=== PATIENT | female | born 1960 | race Caucasian/White ===

== ENCOUNTER 2019-01-21 22:17 | Emergency (ER) | payer BC ==
[2016-06-27 20:53] VITALS: BP 130/68
[~2019-01-21] VITALS: Ht 162.6 cm; Wt 77.1 kg
[~2019-01-21 22:17] MED LIST: ASPI325T8 PO; ATORVASTATIN CA80 MG PO; CITA40TA5 PO; CYCL10TA2 PO; METH4TAB2 PO; METO25TA2 PO; MULT1TAB52 PO; NAPR500T8 PO
[2019-01-22] MEDS ORDERED: PRED20TA PO (00:19)
--- NOTE | 2019-01-22 00:19 | PHYS DOC ---
Past Medical History Past Medical History: No Pertinent History, Depression Past Surgical History: No Surgical History, Other Additional Past Surgical Histo: DOUBLE BYPASS Alcohol Use: None Drug Use: None Adult General Chief Complaint Chief Complaint: SKIN RASH/ABSCESS HPI HPI Patient is a 58 year old [f__sex] who presents with [] Review of Systems Review of Systems Constitutional: Denies fever or chills [] Eyes: Denies change in visual acuity, redness, or eye pain [] HENT: Denies nasal congestion or sore throat [] Respiratory: Denies cough or shortness of breath [] Cardiovascular: No additional information not addressed in HPI [] GI: Denies abdominal pain, nausea, vomiting, bloody stools or diarrhea [] : Denies dysuria or hematuria [] Musculoskeletal: Denies back pain or joint pain [] Integument: Denies rash or skin lesions [] Neurologic: Denies headache, focal weakness or sensory changes [] Endocrine: Denies polyuria or polydipsia [] All other systems were reviewed and found to be within normal limits, except as documented in this note. Allergies Allergies Allergies Coded Allergies Type Severity Reaction Last Updated Verified No Known Drug Allergies 08/04/14 No Physical Exam Physical Exam Constitutional: Well developed, well nourished, no acute distress, non-toxic appearance. [] HENT: Normocephalic, atraumatic, bilateral external ears normal, oropharynx moist, no oral exudates, nose normal. [] Eyes: PERRLA, EOMI, conjunctiva normal, no discharge. [] Neck: Normal range of motion, no tenderness, supple, no stridor. [] Cardiovascular:Heart rate regular rhythm, no murmur [] Lungs & Thorax: Bilateral breath sounds clear to auscultation [] Abdomen: Bowel sounds normal, soft, no tenderness, no masses, no pulsatile masses. [] Skin: Warm, dry, no erythema, no rash. [] Back: No tenderness, no CVA tenderness. [] Extremities: No tenderness, no cyanosis, no clubbing, ROM intact, no edema. [] Neurologic: Alert and oriented X 3, normal motor function, normal sensory function, no focal deficits noted. [] Psychologic: Affect normal, judgement normal, mood normal. [] Current Patient Data Vital Signs Vital Signs Date Time Temp Pulse Resp B/P (MAP) Pulse Ox O2 Delivery O2 Flow Rate FiO2 01/21/19 22:25 97.5 90 18 158/73 (101) 99 Room Air 97.5 EKG EKG [] Radiology/Procedures Radiology/Procedures [] Course & Med Decision Making Course & Med Decision Making Pertinent Labs and Imaging studies reviewed. (See chart for details) [] Dragon Disclaimer Dragon Disclaimer This electronic medical record was generated, in whole or in part, using a voice recognition dictation system. Departure Departure Impression: Primary Impression: Dermatitis Disposition: HOME, SELF-CARE Condition: STABLE Referrals: KASANDRA WELLS MD (PCP) Patient Instructions: Contact Dermatitis, [id number] Additional Instructions: Refrain from overusing your facial creams and over the counter vitamin oils. Use Aquphor to areas of dryness. Scripts Prednisone (PREDNISONE) 20 Mg Tablet 2 TAB PO DAILY, #8 TAB Prov: STACI CARIAS DO 01/22/19 STACI CARIAS DO Jan 22, 2019 00:19
[2019-01-22] MEDS ORDERED: DEXAMETHASONE 4 MG TABLET PO ONE (00:30)
== END 2019-01-22 00:39 | disposition home or self-care (01) ==
LOC: ER 22:17
DX: L30.9 Dermatitis, unspecified (principal)
CPT/HCPCS: 99283; J8540

== ENCOUNTER 2019-05-18 19:55 | Emergency (ER) | payer BC ==
[~2019-05-18] VITALS: Ht 162.6 cm; Wt 83.9 kg
[~2019-05-18 19:55] MED LIST changes: +PRED20TA PO
[2019-05-18 19:59] VITALS: BP 144/63
[2019-05-18 20:47] LABS: BILIRUBIN,URINE NEGATIVE (NEG); CLARITY,URINE CLEAR; COLOR,URINE YELLOW; NITRITE,URINE NEGATIVE (NEG); PH,URINE 5.5; PROTEIN,URINE NEGATIVE (NEG-TRACE); UROBILINOGEN,URINE 0.2 mg/dL (0.2 mg/dL)
[2019-05-18 20:47] LABS: BASO # 0.1 x10^3/uL (0.0-0.2); BASO % 1 % (0-3); EOS % 0 % (0-3); HEMATOCRIT 40.9 % (36.0-47.0); HEMOGLOBIN 13.7 g/dL (12.0-15.5); LYMPH # 2.5 x10^3/uL (1.0-4.8); LYMPH % 26 % (24-48); MEAN CORPUSCULAR HEMOGLOBIN 31 pg (25-35); MEAN CORPUSCULAR HGB CONC 33 g/dL (31-37); MEAN CORPUSCULAR VOLUME 92 fL (79-100); MONO # 0.6 x10^3/uL (0.0-1.1); MONO % 6 % (0-9); NEUT # 6.4 x10^3/uL (1.8-7.7); NEUT % 66 % (31-73); PLATELET COUNT 255 x10^3/uL (140-400); RED BLOOD COUNT 4.46 x10^6/uL (3.50-5.40); RED CELL DISTRIBUTION WIDTH 13.9 % (11.5-14.5); WHITE BLOOD COUNT 9.6 x10^3/uL (4.0-11.0)
[2019-05-18 20:52] LABS: BARBITURATES NEG (NEG); BENZODIAZEPINES NEG (NEG); CANNABINOIDS NEG (NEG); COCAINE NEG (NEG); METHADONE NEG (NEG); OPIATES POS (NEG); PHENCYCLIDINE NEG (NEG)
[2019-05-18 20:53] LABS: AMPHETAMINE/METHAMPHETAMINE POS (NEG); RBC,URINE 0 /HPF (0-2)
[2019-05-18 20:53] LABS: PROTHROMBIN TIME PATIENT 11.6 SEC (11.7-14.0)
[2019-05-18 20:54] LABS: BACTERIA,URINE MODERATE /HPF (0-FEW); SQUAMOUS EPITHELIAL CELL,UR MANY /LPF
[2019-05-18 20:56] LABS: CALCIUM 9.4 mg/dL (8.5-10.1); CREATININE 0.8 mg/dL (0.6-1.0); GFR 73.2; POTASSIUM 3.5 mmol/L (3.5-5.1)
[2019-05-18 21:01] LABS: ALBUMIN 3.7 g/dL (3.4-5.0); TOTAL BILIRUBIN 0.5 mg/dL (0.2-1.0); TOTAL PROTEIN 7.5 g/dL (6.4-8.2)
--- NOTE | 2019-05-18 21:07 | RAD ---
Exam performed: CT scan of the head without contrast. Date of Service: 05/10/2019. Comparison: None available. Clinical History: Dizziness. Technique: Helical acquisitions are obtained from the foramen magnum to the vertex without intravenous administration of contrast. Findings: The ventricles are midline without evidence of dilatation. Normal mosley-white differentiation is maintained. There is no extra axial fluid collection, intraparenchymal hemorrhage or mass lesion. The visualized portions of the orbits, paranasal sinuses and the mastoid air cells appear clear. The calvarium is intact. Impression: 1. No acute intracranial process detected. PQRS Compliance Statement: One or more of the following individualized dose reduction techniques were utilized for this examination: 1. Automated exposure control 2. Adjustment of the mA and/or kV according to patient size 3. Use of iterative reconstruction technique End impression 2 views chest findings: Heart size and mediastinal silhouette is within limits of normal. Pulmonary vascularity is unremarkable. No focal infiltrates, effusion or pneumothorax seen. Bones are normal. IMPRESSION: No acute cardiopulmonary process seen. Electronically signed by: Jennifer Matute MD (05/18/2019 9:04 PM) [facility]
--- NOTE | 2019-05-18 21:14 | PHYS DOC ---
Past Medical History Past Medical History: Anxiety, CAD, Depression (JOSI JASON APRN) Past Surgical History: Cholecystectomy, Other Additional Past Surgical Histo: DOUBLE BYPASS 2006 (JOSI JASON APRN) Alcohol Use: None Drug Use: None (JOSI JASON APRN) Adult General Chief Complaint Chief Complaint: ALLERGIC REACTION HPI HPI Patient is a 58 year old female who presents with at [facility] today when she began feeling dizzy, chest tightness, throat tightness and began getting red all over. Patient also has several wounds on her skin from where she states that she itches all over. Patient states she has a very stressful family circumstances at this time is been going on for last 3 weeks. Patient states today was the first time that she had the dizziness, chest tightness and throat tightness and began getting red all over her body. Patient currently states that she has slight chest tightness at a 4 out of 10. (JOSI JASON APRN) Review of Systems Review of Systems Constitutional: Denies fever or chills [] Eyes: Denies change in visual acuity, redness, or eye pain [] HENT: Denies nasal congestion or sore throat [] Respiratory: Denies cough or shortness of breath [] Cardiovascular: Chest tightness GI: Denies abdominal pain, nausea, vomiting, bloody stools or diarrhea [] : Denies dysuria or hematuria [] Musculoskeletal: Denies back pain or joint pain [] Integument: Flushing. Denies rash or skin lesions [] Neurologic: Dizziness. Denies headache, focal weakness or sensory changes [] Endocrine: Denies polyuria or polydipsia [] All other systems were reviewed and found to be within normal limits, except as documented in this note. (JOSI JASON APRN) Current Medications Current Medications Current Medications Medications (Trade) Dose Ordered Sig/Cristopher Start Time Stop Time Status Last Admin Dose Admin Lorazepam (Ativan Inj) 0.5 mg 1X ONCE 05/18/19 22:15 05/18/19 22:16 DC 05/18/19 22:41 0.5 MG Sodium Chloride 1,000 ml @ 1,000 mls/hr 1X ONCE 05/18/19 22:00 05/18/19 22:59 DC 05/18/19 22:41 1,000 MLS/HR (STACI CARIAS DO) Allergies Allergies Allergies Coded Allergies Type Severity Reaction Last Updated Verified No Known Drug Allergies 08/04/14 No (STACI CARIAS DO) Physical Exam Physical Exam Constitutional: Well developed, well nourished, no acute distress, non-toxic appearance. [] HENT: Normocephalic, atraumatic, bilateral external ears normal, oropharynx moist, no oral exudates, nose normal. [] Eyes: PERRLA, EOMI, conjunctiva normal, no discharge. [] Neck: Normal range of motion, no tenderness, supple, no stridor. [] Cardiovascular:Heart rate regular rhythm, no murmur [] Lungs & Thorax: Bilateral breath sounds clear to auscultation [] Abdomen: Bowel sounds normal, soft, no tenderness, no masses, no pulsatile masses. [] Skin: Flushing generalized. Warm, dry, no erythema, no rash. [] Back: No tenderness, no CVA tenderness. [] Extremities: No tenderness, no cyanosis, no clubbing, ROM intact, no edema. [] Neurologic: Alert and oriented X 3, normal motor function, normal sensory function, no focal deficits noted. [] Psychologic: Affect normal, judgement normal, mood normal. [] (JOSI JASON APRN) Current Patient Data Vital Signs Vital Signs Date Time Temp Pulse Resp B/P (MAP) Pulse Ox O2 Delivery O2 Flow Rate FiO2 05/18/19 23:45 88 18 98 Room Air 05/18/19 19:59 97.7 144/63 (90) 97.7 (STACI CARIAS DO) Lab Values Laboratory Tests Test 05/18/19 20:16 05/18/19 20:30 05/18/19 22:50 Urine Collection Type Unknown Urine Color Yellow Urine Clarity Clear Urine pH 5.5 Urine Specific [place] 1.015 Urine Protein Negative mg/dL (NEG-TRACE) Urine Glucose (UA) Negative mg/dL (NEG) Urine Ketones (Stick) Negative mg/dL (NEG) Urine Blood Negative (NEG) Urine Nitrite Negative (NEG) Urine Bilirubin Negative (NEG) Urine Urobilinogen Dipstick 0.2 mg/dL (0.2 mg/dL) Urine Leukocyte Esterase Large (NEG) Urine RBC 0 /HPF (0-2) Urine WBC 5-10 /HPF (0-4) Urine Squamous Epithelial Cells Many /LPF Urine Bacteria Moderate /HPF (0-FEW) Urine Mucus Mod /LPF Urine Opiates Screen Pos (NEG) Urine Methadone Screen Neg (NEG) Urine Barbiturates Neg (NEG) Urine Phencyclidine Screen Neg (NEG) Urine Amphetamine/Methamphetamine Pos (NEG) Urine Benzodiazepines Screen Neg (NEG) Urine Cocaine Screen Neg (NEG) Urine Cannabinoids Screen Neg (NEG) Urine Ethyl Alcohol Neg (NEG) White Blood Count 9.6 x10^3/uL (4.0-11.0) Red Blood Count 4.46 x10^6/uL (3.50-5.40) Hemoglobin 13.7 g/dL (12.0-15.5) Hematocrit 40.9 % (36.0-47.0) Mean Corpuscular Volume 92 fL (79-100) Mean Corpuscular Hemoglobin 31 pg (25-35) Mean Corpuscular Hemoglobin Concent 33 g/dL (31-37) Red Cell Distribution Width 13.9 % (11.5-14.5) Platelet Count 255 x10^3/uL (140-400) Neutrophils (%) (Auto) 66 % (31-73) Lymphocytes (%) (Auto) 26 % (24-48) Monocytes (%) (Auto) 6 % (0-9) Eosinophils (%) (Auto) 0 % (0-3) Basophils (%) (Auto) 1 % (0-3) Neutrophils # (Auto) 6.4 x10^3/uL (1.8-7.7) Lymphocytes # (Auto) 2.5 x10^3/uL (1.0-4.8) Monocytes # (Auto) 0.6 x10^3/uL (0.0-1.1) Eosinophils # (Auto) 0.0 x10^3/uL (0.0-0.7) Basophils # (Auto) 0.1 x10^3/uL (0.0-0.2) Prothrombin Time 11.6 SEC (11.7-14.0) L Prothrombin Time INR 0.9 (0.8-1.1) Sodium Level 138 mmol/L (136-145) Potassium Level 3.5 mmol/L (3.5-5.1) Chloride Level 102 mmol/L (98-107) Carbon Dioxide Level 26 mmol/L (21-32) Anion Gap 10 (6-14) Blood Urea Nitrogen 22 mg/dL (7-20) H Creatinine 0.8 mg/dL (0.6-1.0) Estimated GFR (Cockcroft-Gault) 73.2 BUN/Creatinine Ratio 28 (6-20) H Glucose Level 104 mg/dL (70-99) H Calcium Level 9.4 mg/dL (8.5-10.1) Total Bilirubin 0.5 mg/dL (0.2-1.0) Aspartate Amino Transferase (AST) 22 U/L (15-37) Alanine Aminotransferase (ALT) 35 U/L (14-59) Alkaline Phosphatase 106 U/L (46-116) Troponin I Quantitative < 0.017 ng/mL (0.000-0.055) < 0.017 ng/mL (0.000-0.055) Total Protein 7.5 g/dL (6.4-8.2) Albumin 3.7 g/dL (3.4-5.0) Albumin/Globulin Ratio 1.0 (1.0-1.7) Laboratory Tests 05/18/19 20:30 Laboratory Tests 05/18/19 20:30 (STACI CARIAS DO) EKG EKG Sinus tach and no STEMI.[] Interpretation Time: [address] carias (JOSI JASON APRN) Radiology/Procedures Radiology/Procedures [] (JOSI JASON APRN) Impressions: [facility] [address] [place] [address] IMAGING REPORT Signed PATIENT: CARMELINA JAMES ACCOUNT: [id number] : 1960 LOCATION: ER AGE: 58 SEX: F EXAM STATUS: REG ER ORD. PHYSICIAN: JOSI JASON APRN REASON: dizziness PROCEDURE: CT HEAD WO CONTRAST Exam performed: CT scan of the head without contrast. Date of Service: 05/10/2019. Comparison: None available. Clinical History: Dizziness. Technique: Helical acquisitions are obtained from the foramen magnum to the vertex without intravenous administration of contrast. Findings: The ventricles are midline without evidence of dilatation. Normal mosley-white differentiation is maintained. There is no extra axial fluid collection, intraparenchymal hemorrhage or mass lesion. The visualized portions of the orbits, paranasal sinuses and the mastoid air cells appear clear. The calvarium is intact. Impression: 1. No acute intracranial process detected. RS Compliance Statement: One or more of the following individualized dose reduction techniques were utilized for this examination: 1. Automated exposure control 2. Adjustment of the mA and/or kV according to patient size 3. Use of iterative reconstruction technique End impression 2 views chest findings: Heart size and mediastinal silhouette is within limits of normal. Pulmonary vascularity is unremarkable. No focal infiltrates, effusion or pneumothorax seen. Bones are normal. IMPRESSION: No acute cardiopulmonary process seen. Electronically signed by: Jennifer Matute MD (05/18/2019 9:04 PM) [facility] DICTATED and SIGNED BY: JENNIFER MATUTE MD DATE: 05/18/192103 (JOSI JASON APRN) Course & Med Decision Making Course & Med Decision Making Patient is a 58 year old female who presents with at [facility] today when she began feeling dizzy, chest tightness, throat tightness and began getting red all over. Patient also has several wounds on her skin of arms and legs from where she states that she itches all over. Patient states she picks at her skin especially during stressful times. Patient states she was on the phone with her daughter and was very stressed out and was picking at her arm. Patient states she has a very stressful family circumstances at this time is been going on for last 3 weeks. Patient states today was the first time that she had the dizziness, chest tightness and throat tightness and began getting red all over her body. Patient currently states that she has slight chest tightness at a 4 out of 10. Alert and oriented. Speaks in full clear sentences. Ambulatory with a steady gait. Patient denies currently chest pain, nausea, vomiting, diaphoresis, dizziness, shortness of air, numbness or tingling, abdominal pain, itching, throat itching or swelling. Patient's skin does look flushed generalized all over her body but per the nurse and the patient the redness is fading. Abdomen is soft and nontender. Lungs are clear to auscultation all lobes. EKG shows sinus tachycardia with at 104 without STEMI. Patient denies any weaknesses. Patient has a history of anxiety and panic attacks, CAD, depression, double bypass in 2006, cholecystectomy. Patients urine is positive for a urinary tract infection and she is positive for methamphetamines but she is on Vyvanse. Blood work is unremarkable. Chest x-ray shows no acute findings. CT head shows no acute findings. Heart score is 3. This is likely panic attack related or anxiety related due to her stressful life situation. I gave the patient the option of being admitted due to her past medical history of heart problems and she states she does not want to stay in the hospital she was at home. Patient has agreed to a second troponin draw. Patient states she has a scheduled appointment with her balling machine operator next week. Second Troponin is negative. Patient is discharged with Keflex for her urinary tract infection she is to follow-up with her primary care provider and her balling machine operator as scheduled. (JOSI JASON APRN) Dragon Disclaimer Dragon Disclaimer This electronic medical record was generated, in whole or in part, using a voice recognition dictation system. (JOSI JASON APRN) The HEART Score for CP Pts HEART Score for Chest Pain: HEART Score for Chest Pain Response (Comments) Value History Slighlty/Non-Suspicious 0 ECG Normal 0 Age >45 - < 65 1 Risk Factors >3 Risk Factors or Hx CAD 2 Troponin < Normal Limit 0 Total 3 Risk Factors: Risk Factors: DM, Current or recent (<one month) smoker, HTN, HLP, family history of CAD, obesity. Risk Scores: Score 0 - 3: 2.5% MACE over next 6 weeks - Discharge Home Score 4 - 6: 20.3% MACE over next 6 weeks - Admit for Clinical Observation Score 7 - 10: 72.7% MACE over next 6 weeks - Early Invasive Strategies (JOSI JASON APRN) Departure Departure Impression: Primary Impression: Chest pain Additional Impression: Urinary tract infection Disposition: HOME, SELF-CARE Condition: STABLE Referrals: KASANDRA WELLS MD (PCP) Patient Instructions: Anxiety and Panic Attacks, Chest Pain (Nonspecific) Additional Instructions: Follow-up with your primary care provider and balling machine operator as scheduled. Scripts Cephalexin (KEFLEX) 500 Mg Capsule 1 CAP PO BID, #14 CAP Prov: JOSI JASON APRN 05/18/19 Attending Signature Attending Signature I have reviewed the PA/BUSINESS BROKER's note and plan of care. I was available for consultation as needed during the patient's visit in the emergency department. I agree with the clinical impression, plan, and disposition. (STACI CARIAS DO) Problem Qualifiers Primary Impression: Chest pain Chest pain type: unspecified Qualified Codes: R07.9 - Chest pain, unspec ified Additional Impression: Urinary tract infection Urinary tract infection type: site unspecified Hematuria presence: without hematuria Qualified Codes: N39.0 - Urinary tract infection, site not specified JOSI JASON APRN May 18, 2019 21:14 STACI CARIAS DO May 20, 2019 04:11
[2019-05-18] MEDS ORDERED: IV NORMAL SALINE 1000ML BAG 1,000 ML IV ONE (22:00)
[2019-05-18] MEDS ORDERED: CEPH-264 PO (23:02)
--- NOTE | 2019-05-19 07:44 | EKG ---
[facility] [address] [place] [address] Test Date: 2019-05-18 Test Time: 20:06:29 Pat Name: CARMELINA JAMES Department: Room: Gender: F Supervisor Frame Sample And Pattern: : 1960 Requested By: JOSI JASON Order Number: [id number] Reading MD: Measurements Intervals [place] Rate: 104 P: 50 DE: 156 QRS: 56 QRSD: 68 T: 66 QT: 318 QTc: 418 Interpretive Statements SINUS TACHYCARDIA LEFT ATRIAL ABNORMALITY QRS(T) CONTOUR ABNORMALITY CONSISTENT WITH ANTEROSEPTAL INFARCT AGE UNDETERMINED ABNORMAL ECG RI6.01 No previous ECG available for comparison
== END 2019-05-19 00:08 | disposition home or self-care (01) ==
LOC: ER 19:55
DX: R07.89 Other chest pain (principal); N39.0 Urinary tract infection, site not specified; R42 Dizziness and giddiness; F41.9 Anxiety disorder, unspecified; F32.9 Major depressive disorder, single episode, unspecified; I25.10 Atherosclerotic heart disease of native coronary artery without angina pectoris; Z90.49 Acquired absence of other specified parts of digestive tract
CPT/HCPCS: 36415; 70450; 71046; 80053; 80307; 81001; 84484; 85025; 85610; 87086; 93005; 96361; 96374; 99285; J2060; J7030

== ENCOUNTER → 2020-02-14 | Emergency (ER) | payer BC ==
[~2020-02-14] VITALS: Ht 162.6 cm; Wt 90.7 kg
[~2020-02-14] MED LIST changes: +CEPH-264 PO
[2020-02-14 21:42] VITALS: BP 158/92
== END ==
LOC: ER 20:37
DX: T14.8XXA Other injury of unspecified body region, initial encounter (principal); Y92.89 Other specified places as the place of occurrence of the external cause; Z53.21 Procedure and treatment not carried out due to patient leaving prior to being seen by health care provider